=== PATIENT | female | born 2000 | race Caucasian/White ===

== ENCOUNTER 2018-04-14 22:54 | Emergency (ER) | payer OTHER ==
[~2018-04-14] VITALS: Ht 175.3 cm; Wt 90.7 kg
[2018-04-15] MEDS ORDERED: KETO10TA2 PO (02:19)
== END 2018-04-15 02:33 ==
LOC: ER 22:54
DX: S93.492A Sprain of other ligament of left ankle, initial encounter (principal); V49.88XA Car occupant (driver) (passenger) injured in other specified transport accidents, initial encounter; Y93.89 Activity, other specified; Y92.89 Other specified places as the place of occurrence of the external cause; Y99.8 Other external cause status

== ENCOUNTER 2022-03-24 22:03 | Emergency (ER) | payer OTHER ==
[~2022-03-24] VITALS: Ht 175.3 cm; Wt 104.3 kg
[~2022-03-24 22:03] MED LIST: KETO10TA2 PO
[2022-03-24] MEDS ORDERED: CRYSELLE-28 TA1 EACH PO (22:12)
[2022-03-24] MEDS ORDERED: MEGESTROL ACETA40 MG PO (22:12)
== END 2022-03-25 02:24 ==
LOC: ER 22:03
DX: N93.9 Abnormal uterine and vaginal bleeding, unspecified (principal); N94.6 Dysmenorrhea, unspecified

== ENCOUNTER 2024-03-20 15:17 | Emergency (ER) | payer OTHER ==
[~2024-03-20] VITALS: Ht 175.3 cm; Wt 108.9 kg
[~2024-03-20 15:17] MED LIST changes: +CRYSELLE-28 TA1 EACH PO; +MEGESTROL ACETA40 MG PO
[2024-03-20] MEDS ORDERED: FAMOTIDINE/PF 20 MG/2 ML VIAL IV ONE (18:00)
[2024-03-20] MEDS ORDERED: ONDANSETRON HCL 2 MG/ML VIAL IV ONE (18:00)
[2024-03-20 18:38] LABS: HEMATOCRIT 40.8 % (36.0-45.00); HEMOGLOBIN 13.4 g/dL (12.0-15.00); MEAN CELL VOLUME 82.3 fL (80.00-100.00); MEAN CORPUSCULAR HGB CONC 32.8 g/dl (32.0-36.0); PLATELET COUNT 392 K/uL (150-450); RED BLOOD COUNT 4.96 M/uL (4.00-6.00); RED CELL DISTRIBUTION WIDTH 14.1 % (11.5-14.5)
[2024-03-20 18:51] LABS: PH,URINE 5.5 (5.0-8.0); URINE APPEARANCE Clear; URINE BILIRRUBIN Negative (NEGATIVE); URINE BLOOD Moderate; URINE COLOR Yellow; URINE GLUCOSE Negative (NEGATIVE); URINE KETONE Trace (NEGATIVE); URINE LEUKOCYTE Negative; URINE NITRATE Negative; URINE PROTEIN Trace (NEGATIVE); URINE UROBILINOGEN 0.2 E.U./dl
[2024-03-20 18:55] LABS: URINE EPITHELIAL CELLS 16.2 uL (0.0-38.8); URINE RBC 44.7 uL (0.0-20.8); URINE WBC 43.7 uL (0.0-23.2)
[2024-03-20 19:05] LABS: ANION GAP 7 (10.0-20.0); BLOOD UREA NITROGEN 9 mg/dL (7-18); BUN CREA RATIO 9 (7.0-25.0); CALCIUM 9.8 mg/dL (8.5-10.1); CARBON DIOXIDE 27 mEq/L (21-32); CHLORIDE 111 mmol/L (98-107); CREATININE SERUM 1.01 mg/dL (0.55-1.02); GFR 66.78; GLUCOSE FASTING 92 mg/dL (65-100); OSMOLALITY SERUM 281 MOSM/KG (275-295); POTASSIUM 3.46 mEq/L (3.5-5.1); SODIUM 142 mmol/L (136-145)
[2024-03-20 19:05] LABS: URINE CAST 0.91 uL (0.0-1.40)
[2024-03-20 19:06] LABS: HCG QUANTITATIVE < 1 mUI/mL (1-3)
[2024-03-20] MEDS ORDERED: AMOXICILLIN500 M1 PO (20:42)
== END 2024-03-20 20:57 | disposition home or self-care (01) ==
LOC: ER 15:19
PROVIDERS: Nurse Practitioner Family
DX: N39.0 Urinary tract infection, site not specified (principal); J45.909 Unspecified asthma, uncomplicated; R10.2 Pelvic and perineal pain
CPT/HCPCS: 36415; 76830; 96365; 99284; J2405; J3490